=== PATIENT | female | born 1970 | race Caucasian/White ===

== ENCOUNTER 2016-04-02 12:54 | Emergency (ER) | payer OTHER ==
[~2016-04-02] VITALS: Ht 162.6 cm; Wt 96.4 kg
[2016-04-02] MEDS ORDERED: ILOTYCIN1 GM RIGHT EYE (16:22)
[2016-04-02 16:54] VITALS: BP 91/79
== END 2016-04-02 16:57 | disposition home or self-care (01) ==
LOC: EME 12:54
DX: T26.41XA Burn of right eye and adnexa, part unspecified, initial encounter (principal); T49.2X5A Adverse effect of local astringents and local detergents, initial encounter; Z77.098 Contact with and (suspected) exposure to other hazardous, chiefly nonmedicinal, chemicals; F17.200 Nicotine dependence, unspecified, uncomplicated
CPT/HCPCS: 99281; 99284